=== PATIENT | male | born 1990 | race Hispanic/Latino ===

== ENCOUNTER 2019-09-09 20:49 | Emergency (ER) | payer OTHER ==
[2019-09-09] MEDS ORDERED: DEXAMETHASONE SOD PHOSPHATE 10MG/ML 1ML VIAL ONE (22:27)
[2019-09-09] MEDS ORDERED: KETOROLAC TROMETHAMINE 30MG/ML ONE (22:27)
[2019-09-09] MEDS ORDERED: ACETAMINOPHEN EXTRA STRENGTH 500 MG TABLET ONE (22:28)
== END 2019-09-09 22:42 | disposition home or self-care (01) ==
LOC: EDH 20:49
DX: J02.0 Streptococcal pharyngitis (principal); R50.9 Fever, unspecified; Z90.49 Acquired absence of other specified parts of digestive tract
CPT/HCPCS: 96372 ×2; 99284; J1100; J1885

== ENCOUNTER 2021-09-27 17:54 | Emergency (ER) | payer OTHER ==
[~2021-09-27] VITALS: Ht 165.1 cm; Wt 90.7 kg
[2021-09-27 17:56] VITALS: BP 144/92
[2021-09-27] MEDS ORDERED: CEFTRIAXONE 1G VIAL IM ONE (18:30)
[2021-09-27] MEDS ORDERED: AZITHROMYCIN 250 MG TABLET PO ONE (18:30)
[2021-09-27 19:38] LABS: APPEARANCE,URINE Clear (CLEAR); BILIRUBIN,URINE Negative (NEGATIVE); COLOR,URINE Dark Yellow (YELLOW); GLUCOSE, URINE (UA) Negative (NEGATIVE); KETONES,URINE Trace mg/dL (NEGATIVE); LEUKOCYTE ESTERASE ,URINE Negative (NEGATIVE); NITRATE,URINE Negative (NEGATIVE); OCCULT BLOOD,URINE Negative (NEGATIVE); PH,URINE 5.5 (5.0-8.0); PROTEIN,URINE Trace mg/dL (NEGATIVE)
[2021-09-27 20:16] LABS: BACTERIA,URINE Rare /HPF (None Seen); MUCUS,URINE Moderate LPF (None Seen); RBC,URINE 0-1 /HPF (0-1); SQUAMOUS EPITHELIAL CELL,UR Rare /HPF (0-2); WBC,URINE 0-1 /HPF (0-1)
== END 2021-09-27 19:25 | disposition home or self-care (01) ==
LOC: EDH 17:54
DX: Z20.2 Contact with and (suspected) exposure to infections with a predominantly sexual mode of transmission (principal); Z90.49 Acquired absence of other specified parts of digestive tract
CPT/HCPCS: 81001; 87486; 87797

== ENCOUNTER 2022-10-19 21:13 | Emergency (ER) | payer OTHER ==
[~2022-10-19] VITALS: Ht 162.6 cm; Wt 101.2 kg
[2022-10-19 21:53] LABS: BASOPHILS % (AUTO) 0.4 % (0.0-5.0); EOSINOPHILS % (AUTO) 1.8 % (0.0-8.0); HEMATOCRIT 49.9 % (42-54); LYMPHOCYTES % (AUTO) 23.7 % (21.0-51.0); MEAN CORPUSCULAR HEMOGLOBIN 28.3 pg (27.0-33.0); MEAN CORPUSCULAR HGB CONC 34.3 g/dL (32.0-36.0); MEAN CORPUSCULAR VOLUME 82.5 fL (79-99); MONOCYTES % (AUTO) 4.8 % (3.0-13.0); NEUTROPHILS % (AUTO) 69.1 % (40.0-77.0); PLATELET COUNT (AUTO) 250 K/uL (130-400); RED BLOOD CELL COUNT(AUTO) 6.05 MIL/uL (4.50-6.20); RED CELL DISTRIBUTION WIDTH 12.7 % (11.0-15.5)
[2022-10-19 21:56] LABS: APPEARANCE,URINE CLEAR (CLEAR); BILIRUBIN,URINE NEGATIVE (NEGATIVE); COLOR,URINE YELLOW (YELLOW); GLUCOSE, URINE (UA) NEGATIVE (NEGATIVE); KETONES,URINE NEGATIVE (NEGATIVE); LEUKOCYTE ESTERASE ,URINE NEGATIVE Leu/uL (NEGATIVE); NITRATE,URINE NEGATIVE (NEGATIVE); PH,URINE 5.5 (5.0-8.0); PROTEIN,URINE 20 mg/dL (NEGATIVE)
[2022-10-19] MEDS ORDERED: ONDANSETRON 4MG INJ IVP ONE (22:00)
[2022-10-19] MEDS ORDERED: 0.9%NACL 1000ML 1,000 ML IV SCH ×2 (22:00)
[2022-10-19 22:01] LABS: BACTERIA,URINE RARE /HPF (None Seen); MUCUS,URINE MOD LPF (None Seen)
[2022-10-19 22:10] LABS: CARBON DIOXIDE 26 mmol/L (21-32); CHLORIDE 103 mmol/L (101-111); GLOMERULAR FILTR. RATE CALC 104 mL/min (>90); GLUCOSE,RANDOM 114 mg/dL (70-105); POTASSIUM 3.9 mmol/L (3.5-5.1); SODIUM SERUM 136 mmol/L (136-145); UREA NITROGEN, BLOOD 11 mg/dL (7-18)
[2022-10-19 22:25] LABS: ALANINE AMINOTRANSFERASE 38 U/L (12-78); ASPARTATE AMINOTRANSFERASE 19 U/L (10-37); TOTAL PROTEIN, SERUM 7.7 g/dL (6.0-8.3)
[2022-10-19 22:34] LABS: CREATINE KINASE, TOTAL 443 U/L (21-232); LIPASE < 50 U/L (114-286)
[2022-10-19] MEDS ORDERED: ONDA-104 PO (23:42)
[2022-10-19] MEDS ORDERED: OMEP40CA21 PO (23:42)
[2022-10-20 00:27] VITALS: BP 134/70
== END 2022-10-20 00:35 | disposition home or self-care (01) ==
LOC: EDH 21:13
DX: R42 Dizziness and giddiness (principal); E86.0 Dehydration; R11.2 Nausea with vomiting, unspecified; Z20.822 Contact with and (suspected) exposure to COVID-19; Z79.899 Other long term (current) drug therapy
CPT/HCPCS: 99285; 96374; 71045; 87635; 96361; 82550; 84484; 80053; 83690; 85025; 85378; 87088; 87804 ×2; 81001; 36415; 93005; C9803; J7030; J2405

== ENCOUNTER 2022-12-02 01:13 | Emergency (ER) | payer OTHER ==
[~2022-12-02] VITALS: Ht 165.1 cm; Wt 99.8 kg
[~2022-12-02 01:13] MED LIST: OMEP40CA21 PO; ONDA-104 PO
[2022-12-02] MEDS ORDERED: PENICILLIN G BENZATHINE LA 600,000 UNITS/ML SYG IM ONE ×2 (01:45→02:00)
[2022-12-02 02:25] VITALS: BP 129/82
[2022-12-02] MEDS ORDERED: LIDOCAINE HCL 1% 20 ML VIAL INJ SCH (02:30)
== END 2022-12-02 02:39 | disposition home or self-care (01) ==
LOC: EDH 01:13
DX: L02.413 Cutaneous abscess of right upper limb (principal); Z90.89 Acquired absence of other organs
CPT/HCPCS: 99283; 10060; 87070; 87076; 87077; 87186; 96372; J0561